=== PATIENT | male | born 1955 | race African-American/Black ===

== ENCOUNTER 2018-04-13 13:37 | Outpatient (CLI) | payer MEDICARE, MEDICAID ==
[2018-04-13 14:09] LABS: BASOPHILS % (AUTO) 1.3 % (0.0-2.0); EOSINOPHILS % (AUTO) 2.2 % (0.0-3.0); HEMATOCRIT 27.8 % (42.0-52.0); HEMOGLOBIN 8.5 G/DL (14.2-18.0); LYMPHOCYTES % (AUTO) 13.2 % (20.0-45.0); MEAN CORPUSCULAR VOLUME 91 FL (80-99); MONOCYTES % (AUTO) 7.3 % (1.0-10.0); PLATELET COUNT 228 K/UL (150-450); RED BLOOD COUNT 3.05 M/UL (4.70-6.10); RED CELL DISTRIBUTION WIDTH 13.7 % (11.6-14.8); WHITE BLOOD COUNT 8.3 K/UL (4.8-10.8)
[2018-04-13 14:34] LABS: ALANINE AMINOTRANSFERASE 18 U/L (12-78); ALBUMIN 3.1 G/DL (3.4-5.0); ALBUMIN/GLOBULIN RATIO 0.6 (1.0-2.7); ALKALINE PHOSPHATASE 108 U/L (46-116); ANION GAP 14 mmol/L (5-15); ASPARTATE AMINO TRANSFERASE 18 U/L (15-37); BILIRUBIN,TOTAL 0.2 MG/DL (0.2-1.0); BLOOD UREA NITROGEN 45 mg/dL (7-18); CALCIUM 6.9 MG/DL (8.5-10.1); CARBON DIOXIDE 20 MMOL/L (21-32); CHLORIDE 107 MMOL/L (98-107); CREATININE 5.6 MG/DL (0.55-1.30); POTASSIUM 4.8 MMOL/L (3.5-5.1); SODIUM 140 MMOL/L (136-145)
--- NOTE | 2018-04-15 17:02 | Cardiology Report ---
APPROVED REPORT EKG Measurement Heart [id number] Normal sinus rhythm Prolonged QT Abnormal ECG
== END 2018-04-13 15:37 | disposition home or self-care (01) ==
LOC: CAR 13:37
DX: R53.1 Weakness (principal)
CPT/HCPCS: 36415; 80053; 82306; 82607; 84153; 84443; 85025; 85651; 93005

== ENCOUNTER 2018-05-12 16:59 | Inpatient (IN) | payer MEDICARE, MEDICAID ==
[~2018-05-12] VITALS: Ht 188 cm; Wt 157.9 kg
[2018-05-12 17:28] VITALS: BP 137/93
[2018-05-12 17:41] LABS: EOSINOPHILS % (AUTO) 1.6 % (0.0-3.0); HEMATOCRIT 31.2 % (42.0-52.0); HEMOGLOBIN 9.7 G/DL (14.2-18.0); MEAN CORPUSCULAR VOLUME 91 FL (80-99); MONOCYTES % (AUTO) 7.1 % (1.0-10.0); NEUTROPHILS % (AUTO) 75.3 % (45.0-75.0); PLATELET COUNT 240 K/UL (150-450); RED BLOOD COUNT 3.41 M/UL (4.70-6.10); RED CELL DISTRIBUTION WIDTH 13.4 % (11.6-14.8); WHITE BLOOD COUNT 10.6 K/UL (4.8-10.8)
[2018-05-12 17:46] LABS: APPEARANCE,URINE CLEAR; BILIRUBIN, URINE NEGATIVE (NEGATIVE); COLOR,URINE PALE YELLOW; GLUCOSE, URINE (UA) NEGATIVE (NEGATIVE); KETONES,URINE NEGATIVE (NEGATIVE); LEUKOCYTE ESTERASE ,URINE 3+ (NEGATIVE); NITRITE,URINE NEGATIVE (NEGATIVE); PH,URINE 5 (4.5-8.0); PROTEIN,URINE 2+ (NEGATIVE); UROBILINOGEN,URINE NORMAL MG/DL (0.0-1.0)
[2018-05-12 17:52] LABS: ANION GAP 13 mmol/L (5-15); BLOOD UREA NITROGEN 46 mg/dL (7-18); CALCIUM 7.5 MG/DL (8.5-10.1); CARBON DIOXIDE 23 MMOL/L (21-32); CHLORIDE 105 MMOL/L (98-107); CREATININE 5.1 MG/DL (0.55-1.30); POTASSIUM 4.7 MMOL/L (3.5-5.1); SODIUM 141 MMOL/L (136-145)
[2018-05-12 18:03] LABS: ALANINE AMINOTRANSFERASE 15 U/L (12-78); ALBUMIN 3.6 G/DL (3.4-5.0); ALBUMIN/GLOBULIN RATIO 0.7 (1.0-2.7); ALKALINE PHOSPHATASE 127 U/L (46-116); ASPARTATE AMINO TRANSFERASE 17 U/L (15-37); BILIRUBIN,TOTAL 0.3 MG/DL (0.2-1.0); CREATINE KINASE 799 U/L (26-308)
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
[2018-05-12] MEDS ORDERED: cefTRIAXone 1 GM in NS 55 ML IVPB ONE (18:45)
[2018-05-12 18:47] VITALS: BP 139/82
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
[2018-05-12 19:41] VITALS: BP 141/71
[2018-05-12] MEDS ORDERED: AMLODIPINE BESY10 MG ORAL (20:39)
[2018-05-12] MEDS ORDERED: LEXAPRO10 MG ORAL (20:49)
[2018-05-12] MEDS ORDERED: TRAZODONE HCL150 MG ORAL (20:49)
[2018-05-12] MEDS ORDERED: SEROQUEL100 MG ORAL (20:49)
[2018-05-12 21:06] VITALS: BP 140/67
[2018-05-12 22:19] VITALS: BP 138/67
[2018-05-12] MEDS: Heparin 5000 units/ml inj SUBQ SCH (23:30)
[2018-05-13] VITALS: BP 147/89
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
[2018-05-13 04:00] VITALS: BP 151/78
[2018-05-13 07:24] LABS: BASOPHILS % (AUTO) 0.7 % (0.0-2.0); EOSINOPHILS % (AUTO) 1.6 % (0.0-3.0); HEMATOCRIT 29.6 % (42.0-52.0); HEMOGLOBIN 8.9 G/DL (14.2-18.0); LYMPHOCYTES % (AUTO) 10.4 % (20.0-45.0); MEAN CORPUSCULAR VOLUME 91 FL (80-99); NEUTROPHILS % (AUTO) 80.3 % (45.0-75.0); PLATELET COUNT 225 K/UL (150-450); RED BLOOD COUNT 3.25 M/UL (4.70-6.10); RED CELL DISTRIBUTION WIDTH 13.3 % (11.6-14.8); WHITE BLOOD COUNT 9.4 K/UL (4.8-10.8)
[2018-05-13 07:38] LABS: CHLORIDE 112 MMOL/L (98-107)
[2018-05-13 07:52] LABS: ANION GAP 12 mmol/L (5-15); BLOOD UREA NITROGEN 44 mg/dL (7-18); CALCIUM 7.5 MG/DL (8.5-10.1); CARBON DIOXIDE 22 MMOL/L (21-32); CREATININE 5.3 MG/DL (0.55-1.30); POTASSIUM 4.9 MMOL/L (3.5-5.1); SODIUM 146 MMOL/L (136-145)
[2018-05-13 07:57] LABS: ALANINE AMINOTRANSFERASE 15 U/L (12-78); ALBUMIN 3.1 G/DL (3.4-5.0); ALBUMIN/GLOBULIN RATIO 0.7 (1.0-2.7); ALKALINE PHOSPHATASE 115 U/L (46-116); ASPARTATE AMINO TRANSFERASE 16 U/L (15-37); BILIRUBIN,TOTAL 0.3 MG/DL (0.2-1.0); CHOLESTEROL 153 MG/DL (< 200); CREATINE KINASE 759 U/L (26-308); HDL CHOLESTEROL 44 MG/DL (40-60); TRIGLYCERIDES 81 MG/DL (30-150)
[2018-05-13 08:53] VITALS: BP 148/96
[2018-05-13] MEDS: cefTRIAXone 1 GM in NS 55 ML IVPB SCH (09:54)
--- NOTE | 2018-05-13 09:59 | Diagnostic Imaging Report ---
Indication: Dyspnea Technique: One view of the chest Comparison: 09/24/2011 Findings: There is persistent elevation of right hemidiaphragm with some right basilar atelectasis. The lungs and pleural spaces are otherwise clear. The heart size is upper limits of normal. Extensive degenerative proliferative changes of the right shoulder are again demonstrated Impression: No acute process. Findings as noted
[2018-05-13] MEDS ORDERED: Norco 5mg/325mg tab ORAL PRN (10:00)
[2018-05-13] MEDS: Docusate 100mg cap ORAL SCH (10:03)
[2018-05-13] MEDS: Heparin 5000 units/ml inj SUBQ SCH ×2 (10:07→20:47)
[2018-05-13 12:00] VITALS: BP 152/96
--- NOTE | 2018-05-13 12:45 | Diagnostic Imaging Report ---
Indication: Acute renal failure Technique: Grayscale and duplex images of the kidneys, retroperitoneum, and bladder were obtained. Comparison: none Findings: Exam is somewhat limited due to patient body habitus Right kidney measures 10 cm in length. Left kidney measures 11.2 cm in length. It is not well-demonstrated, due to overlying bowel gas. Both kidneys demonstrate normal echogenicity. No hydronephrosis. Right kidney demonstrates multiple cysts. Left kidney demonstrates an interpolar region cyst. Inferior vena cava could not be demonstrated. Bladder is distended, calculated volume 671 mL. Impression: Somewhat limited exam, as described Negative for hydronephrosis Bilateral renal cysts Markedly distended bladder, 671 mL Nonvisualized inferior vena cava.
--- NOTE | 2018-05-13 14:16 | Consultation ---
Consult Note Assessment/Plan Renal consult dictated # [id number] Flex Traylor MD May 13, 2018 14:16
[2018-05-13 16:00] VITALS: BP 154/101
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
[2018-05-13 20:34] VITALS: BP 167/88
[2018-05-13] MEDS: QUEtiapine 200mg tab ORAL SCH (20:46)
[2018-05-13] MEDS: TraZODone 100mg tab ORAL SCH (20:46)
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
[2018-05-14 00:24] VITALS: BP 136/89
[2018-05-14 04:58] VITALS: BP 138/79
[2018-05-14 07:49] LABS: ANION GAP 12 mmol/L (5-15); BLOOD UREA NITROGEN 46 mg/dL (7-18); CALCIUM 7.4 MG/DL (8.5-10.1); CARBON DIOXIDE 23 MMOL/L (21-32); CHLORIDE 114 MMOL/L (98-107); CREATININE 5.3 MG/DL (0.55-1.30); PHOSPHORUS 5.4 MG/DL (2.5-4.9); POTASSIUM 4.5 MMOL/L (3.5-5.1); SODIUM 149 MMOL/L (136-145)
[2018-05-14 07:57] VITALS: BP 151/95
[2018-05-14 08:04] LABS: % IRON SATURATION 15 % (15-50); IRON 24 ug/dL (50-175); TOTAL IRON BINDING CAPACITY 161 ug/dL (250-450)
[2018-05-14] MEDS: cefTRIAXone 1 GM in NS 55 ML IVPB SCH (08:35)
[2018-05-14] MEDS: Docusate 100mg cap ORAL SCH (08:35)
[2018-05-14] MEDS: Heparin 5000 units/ml inj SUBQ SCH ×2 (08:47→20:28)
--- NOTE | 2018-05-14 10:28 | Consultation ---
History of Present Illness General Date patient seen: May 14, 2018 Time patient seen: 10:15 Chief Complaint: General Complaint Referring physician: Carlos Barbosa MD Present Illness HPI Asked to evaluate this 62 yom for coccyx and right plantar foot ulcers. He was admitted to [facility] from home 2 days ago with renal failure and UTI. He lives at home alone and spends most of his time in an electric wheelchair. He states he has had the coccyx ulcer for several months and the right plantar foot ulcer for a year. He was going to [facility] for the foot ulcer but unclear whether there has been any management of the coccyx ulcer. He is unsure if he has had any vascular work up of his LE. Allergies: Coded Allergies: No Known Allergies (Unverified , 05/12/18) Medication History Scheduled Amlodipine Besylate* (Amlodipine Besylate*), 10 MG ORAL DAILY, (Reported) Escitalopram Oxalate* (Lexapro*), Unknown Dose ORAL DAILY, (Reported) Quetiapine Fumarate* (Seroquel*), Unknown Dose ORAL QHS, (Reported) Trazodone* (Trazodone*), Unknown Dose ORAL BEDTIME, (Reported) Patient History History Provided By: Patient, Medical Record Healthcare decision maker PADILLA DRAKE Resuscitation status Full Code Advanced Directive on File N/A Past Medical/Surgical History Past Medical/Surgical History: (1) Acute renal failure (2) Ulcer of right heel (3) Schizoaffective disorder (4) Hypertension (5) Breast cancer in male Review of Systems Constitutional: Reports: no symptoms Eye: Reports: no symptoms Respiratory: Reports: no symptoms Gastrointestinal: Reports: no symptoms Skin: Reports: see HPI Physical Exam General Appearance: no apparent distress, alert, morbidly obese Lines, tubes and drains: peripheral Respiratory/Chest: no respiratory distress Cardiovascular/Chest: other - DP/PT not palpable in the right foot. Abdomen: soft Skin Exam: other - Coccyx ulcer is stage 4 with small pinpoint opening that probes down to bone. No erythema or warmth in the periskin and no undermining. No purulent drainage. Right plantar foot ulcer with very dry base and callus in the periulcer skin. No erythema or warmth. Musculoskeletal: other - Swelling in RLE but no swelling in right foot. Last 24 Hour Vital Signs Date Time Temp Pulse Resp B/P (MAP) Pulse Ox O2 Delivery O2 Flow Rate FiO2 05/14/18 09:00 Room Air 05/14/18 07:57 98.1 101 20 151/95 (113) 100 98.1 05/14/18 04:58 96.3 102 20 138/79 (98) 99 96.3 05/14/18 00:24 97.0 103 20 136/89 (105) 99 97.0 05/13/18 21:49 Room Air 05/13/18 20:46 100 167/88 05/13/18 20:34 99.3 100 20 167/88 (114) 97 99.3 05/13/18 16:00 98.4 100 20 154/101 (118) 98 98.4 05/13/18 12:00 98.1 99 20 152/96 (114) 96 98.1 Intake and Output 05/13/18 05/14/18 19:00 07:00 Intake Total 2625 ml 860 ml Output Total 4391 ml 1700 ml Balance -1766 ml -840 ml Intake Oral 2000 ml 360 ml IV Total 625 ml 500 ml Output Urine Total 4300 ml 1700 ml Post Void Residual 91 ml Bladder Scan Volume Amount 91cc 0 ml 121cc Laboratory Tests Test 05/14/18 05:50 Sodium Level 149 MMOL/L (136-145) H Potassium Level 4.5 MMOL/L (3.5-5.1) Chloride Level 114 MMOL/L (98-107) H Carbon Dioxide Level 23 MMOL/L (21-32) Anion Gap 12 mmol/L (5-15) Blood Urea Nitrogen 46 mg/dL (7-18) H Creatinine 5.3 MG/DL (0.55-1.30) H Estimat Glomerular Filtration Rate 13.3 mL/min (>60) Glucose Level 82 MG/DL (74-106) Calcium Level 7.4 MG/DL (8.5-10.1) L Phosphorus Level 5.4 MG/DL (2.5-4.9) H Iron Level 24 ug/dL (50-175) L Total Iron Binding Capacity 161 ug/dL (250-450) L Percent Iron Saturation 15 % (15-50) Unsaturated Iron Binding 137 ug/dL (112-346) Vitamin D 25-Hydroxy Pending 25-Hydroxy Vitamin D2 Pending 25-Hydroxy Vitamin D3 Pending Height (Feet): 6 Height (Inches): 2.00 Weight (Pounds): 348 Medications Current Medications Medications (Trade) Dose Ordered Sig/Dheeraj Route PRN Reason Start Time Stop Time Status Last Admin Dose Admin Acetaminophen (Tylenol) 650 mg Q4H PRN ORAL fever 05/12/18 19:45 06/11/18 19:44 Acetaminophen (Tylenol) 650 mg Q4H PRN ORAL Pain 1-6 05/13/18 10:00 06/12/18 09:59 Acetaminophen/ Hydrocodone Bitart ([place] 5/325) 1 tab Q4H PRN ORAL Severe Pain (Pain Scale 7-10) 05/13/18 10:00 05/20/18 09:59 Amlodipine Besylate (Norvasc) 10 mg DAILY@1999 ORAL 05/13/18 20:00 06/12/18 19:59 05/13/18 20:46 Ceftriaxone Sodium 1 gm/ Sodium Chloride 55 ml @ 110 mls/hr DAILY IVPB 05/13/18 09:00 05/20/18 08:59 05/14/18 08:35 Dextrose (Dextrose 50%) 25 ml STAT PRN IV Hypoglycemia 05/12/18 19:45 06/11/18 19:44 Dextrose (Dextrose 50%) 50 ml STAT PRN IV Hypoglycemia 05/12/18 19:45 06/11/18 19:44 Docusate Sodium (Colace) 100 mg DAILY ORAL 05/13/18 09:00 06/12/18 08:59 05/14/18 08:35 Escitalopram Oxalate (Lexapro) 20 mg DAILY ORAL 05/14/18 09:00 06/13/18 08:59 05/14/18 08:35 Heparin Sodium (Porcine) (Heparin 5000 units/ml) 5,000 units EVERY 12 HOURS SUBQ 05/12/18 21:19 06/11/18 21:18 05/14/18 08:47 Levothyroxine Sodium (Synthroid) 100 mcg DAILY@0630 ORAL 05/13/18 06:30 06/12/18 06:29 05/14/18 06:05 Quetiapine Fumarate (SEROquel) 800 mg BEDTIME ORAL 05/13/18 21:00 06/12/18 20:59 05/13/18 20:46 Sodium Chloride 1,000 ml @ 50 mls/hr Q20H IVLG 05/12/18 20:37 06/11/18 20:36 05/13/18 21:01 Trazodone HCl (Desyrel) 100 mg BEDTIME ORAL 05/13/18 21:00 06/12/18 20:59 05/13/18 20:46 Assessment/Plan Status: stable Assessment/Plan Patient with chronic stage 4 ulcer of the coccyx as well as right plantar foot ulcer. The foot ulcer is not in the typical location for pressure and would recommend arterial doppler evaluation of the RLE. The coccyx ulcer is small but due to the location and the patient's body habitus and the fact that he spends a significant amount of time sitting, this will be difficult to heal. The periulcer sin is moist in the gluteal cleft and so would use alginate to provide a less moisture filled wound environment. Ideally he would spend little time in the wheelchair to allow the ulcer to heal but this may be unrealistic given that he lives alone and can only ambulate for small distances due to deconditioning. No need for urgent surgical intervention at this time. When discharged can set him up for follow up at [facility]. Thank you for allowing me to participate in this patient's care. Lj Landers MD May 14, 2018 10:28
[2018-05-14 11:54] VITALS: BP 148/92
--- NOTE | 2018-05-14 13:48 | Nephrology Progress Note ---
Assessment/Plan Problem List: (1) UTI (urinary tract infection) Assessment: E coli sen to ceftriaxone (2) Chronic kidney disease (3) Hypothyroidism (4) Breast cancer in male Plan abxs check PTH and Vit D Discussed with Dr Barbosa Needs renal biopsy as outpt follow BMP Subjective Subjective feels ok Objective Objective Last 24 Hour Vital Signs Date Time Temp Pulse Resp B/P (MAP) Pulse Ox O2 Delivery O2 Flow Rate FiO2 05/14/18 11:54 98.2 96 20 148/92 (110) 98 98.2 05/14/18 09:00 Room Air 05/14/18 07:57 98.1 101 20 151/95 (113) 100 98.1 05/14/18 04:58 96.3 102 20 138/79 (98) 99 96.3 05/14/18 00:24 97.0 103 20 136/89 (105) 99 97.0 05/13/18 21:49 Room Air 05/13/18 20:46 100 167/88 05/13/18 20:34 99.3 100 20 167/88 (114) 97 99.3 05/13/18 16:00 98.4 100 20 154/101 (118) 98 98.4 Intake and Output 05/13/18 05/14/18 19:00 07:00 Intake Total 2625 ml 860 ml Output Total 4391 ml 1700 ml Balance -1766 ml -840 ml Intake Oral 2000 ml 360 ml IV Total 625 ml 500 ml Output Urine Total 4300 ml 1700 ml Post Void Residual 91 ml Bladder Scan Volume Amount 91cc 0 ml 121cc Laboratory Tests 05/14/18 05:50: Sodium Level 149H, Potassium Level 4.5, Chloride Level 114H, Carbon Dioxide Level 23, Anion Gap 12, Blood Urea Nitrogen 46H, Creatinine 5.3H, Estimat Glomerular Filtration Rate 13.3, Glucose Level 82, Calcium Level 7.4L, Phosphorus Level 5.4H, Iron Level 24L, Total Iron Binding Capacity 161L, Percent Iron Saturation 15, Unsaturated Iron Binding 137, Vitamin D 25-Hydroxy [ Pending], 25-Hydroxy Vitamin D2 [Pending], 25-Hydroxy Vitamin D3 [Pending] Height (Feet): 6 Height (Inches): 2.00 Weight (Pounds): 348 Cardiovascular: normal rate Respiratory/Chest: lungs clear Extremities: severe edema Flex Traylor MD May 14, 2018 13:48
[2018-05-14 16:00] VITALS: BP 152/99
[2018-05-14 20:00] VITALS: BP 155/97
[2018-05-14] MEDS: Iron Sucrose 100 MG in NS 55 ML IV SCH (20:26)
[2018-05-14] MEDS: QUEtiapine 200mg tab ORAL SCH (20:27)
[2018-05-14] MEDS: TraZODone 100mg tab ORAL SCH (20:27)
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
[2018-05-14] MEDS ORDERED: Cephalexin 500mg cap ORAL SCH (22:34)
[2018-05-14] MEDS: Cephalexin 250mg Cap ORAL SCH (23:13)
[2018-05-15 05:00] VITALS: BP 149/98
[2018-05-15] MEDS: Cephalexin 250mg Cap ORAL SCH ×3 (06:37→21:29)
[2018-05-15 07:27] LABS: BASOPHILS % (AUTO) 0.6 % (0.0-2.0); EOSINOPHILS % (AUTO) 2.3 % (0.0-3.0); HEMATOCRIT 27.1 % (42.0-52.0); HEMOGLOBIN 8.6 G/DL (14.2-18.0); LYMPHOCYTES % (AUTO) 14.7 % (20.0-45.0); MEAN CORPUSCULAR VOLUME 92 FL (80-99); MONOCYTES % (AUTO) 6.5 % (1.0-10.0); PLATELET COUNT 215 K/UL (150-450); RED BLOOD COUNT 2.94 M/UL (4.70-6.10); RED CELL DISTRIBUTION WIDTH 12.9 % (11.6-14.8); WHITE BLOOD COUNT 8.4 K/UL (4.8-10.8)
[2018-05-15 07:41] LABS: ANION GAP 14 mmol/L (5-15); BLOOD UREA NITROGEN 47 mg/dL (7-18); CARBON DIOXIDE 22 MMOL/L (21-32); CHLORIDE 113 MMOL/L (98-107); CREATININE 5.4 MG/DL (0.55-1.30); POTASSIUM 4.3 MMOL/L (3.5-5.1); SODIUM 149 MMOL/L (136-145)
[2018-05-15 08:00] VITALS: BP 137/82
[2018-05-15] MEDS: Docusate 100mg cap ORAL SCH (08:24)
[2018-05-15] MEDS: Heparin 5000 units/ml inj SUBQ SCH ×2 (08:25→21:34)
[2018-05-15 08:32] LABS: CREATINE KINASE 760 U/L (26-308)
--- NOTE | 2018-05-15 11:02 | Nephrology Progress Note ---
Assessment/Plan Problem List: (1) UTI (urinary tract infection) Assessment: E coli sen to ceftriaxone (2) Chronic kidney disease (3) Hypothyroidism (4) Breast cancer in male Plan abxs check PTH and Vit D Needs renal biopsy as outpt Subjective Subjective feels ok Objective Objective Last 24 Hour Vital Signs Date Time Temp Pulse Resp B/P (MAP) Pulse Ox O2 Delivery O2 Flow Rate FiO2 05/15/18 09:00 Room Air 05/15/18 08:00 97.3 102 19 137/82 (100) 97 97.3 05/15/18 05:00 97.9 101 20 149/98 (115) 94 97.9 05/14/18 21:25 Room Air 05/14/18 20:27 101 155/97 05/14/18 20:00 98.4 101 20 155/97 (116) 93 98.4 05/14/18 16:00 98.2 96 20 152/99 (116) 98 98.2 05/14/18 11:54 98.2 96 20 148/92 (110) 98 98.2 Intake and Output 05/14/18 05/15/18 19:00 07:00 Intake Total 1085 ml 110 ml Output Total 1800 ml 2600 ml Balance -715 ml -2490 ml Intake Oral 480 ml IV Total 605 ml 110 ml Output Urine Total 1800 ml 2600 ml Bladder Scan Volume Amount 0 ml 0 ml 0 ml 0 ml # Bowel Movements 1 Laboratory Tests 05/15/18 04:50: White Blood Count 8.4, Red Blood Count 2.94L, Hemoglobin 8.6L, Hematocrit 27.1L , Mean Corpuscular Volume 92, Mean Corpuscular Hemoglobin 29.4, Mean Corpuscular Hemoglobin Concent 31.8L, Red Cell Distribution Width 12.9, Platelet Count 215, Mean Platelet Volume 6.7, Neutrophils (%) (Auto) 76.0H, Lymphocytes (%) (Auto) 14.7L, Monocytes (%) (Auto) 6.5, Eosinophils (%) (Auto) 2.3, Basophils (%) (Auto) 0.6, Sodium Level 149H, Potassium Level 4.3, Chloride Level 113H, Carbon Dioxide Level 22, Anion Gap 14, Blood Urea Nitrogen 47H, Creatinine 5.4H, Estimat Glomerular Filtration Rate 13.1, Glucose Level 86, Calcium Level 8.0L, Total Creatine Kinase 760H Height (Feet): 6 Height (Inches): 2.00 Weight (Pounds): 348 Cardiovascular: normal rate Respiratory/Chest: lungs clear Extremities: moderate edema Flex Traylor MD May 15, 2018 11:02
[2018-05-15 12:00] VITALS: BP 156/89
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
[2018-05-15 16:00] VITALS: BP 153/81
[2018-05-15 21:00] VITALS: BP 174/106
[2018-05-15] MEDS: Iron Sucrose 100 MG in NS 55 ML IV SCH (21:28)
[2018-05-15] MEDS: TraZODone 100mg tab ORAL SCH (21:29)
[2018-05-15] MEDS: QUEtiapine 200mg tab ORAL SCH (21:31)
[2018-05-15 21:40] VITALS: BP 155/96
[2018-05-16 04:00] VITALS: BP 152/97
[2018-05-16] MEDS: Cephalexin 250mg Cap ORAL SCH ×2 (06:01→15:11)
[2018-05-16 07:28] LABS: ANION GAP 15 mmol/L (5-15); BLOOD UREA NITROGEN 47 mg/dL (7-18); CALCIUM 7.7 MG/DL (8.5-10.1); CARBON DIOXIDE 21 MMOL/L (21-32); CHLORIDE 111 MMOL/L (98-107); CREATININE 5.1 MG/DL (0.55-1.30); POTASSIUM 4.2 MMOL/L (3.5-5.1); SODIUM 147 MMOL/L (136-145)
[2018-05-16 08:00] VITALS: BP 155/95
[2018-05-16] MEDS: Docusate 100mg cap ORAL SCH (08:46)
[2018-05-16] MEDS: Heparin 5000 units/ml inj SUBQ SCH (08:50)
[2018-05-16 12:00] VITALS: BP 149/93
--- NOTE | 2018-05-16 12:37 | Nephrology Progress Note ---
Assessment/Plan Problem List: (1) UTI (urinary tract infection) Assessment: E coli sen to ceftriaxone (2) Chronic kidney disease Assessment: stable (3) Hypothyroidism (4) Breast cancer in male (5) Secondary hyperparathyroidism (of renal origin) Plan abxs start Zemplar Needs renal biopsy as outpt Subjective Subjective feels ok Objective Objective Last 24 Hour Vital Signs Date Time Temp Pulse Resp B/P (MAP) Pulse Ox O2 Delivery O2 Flow Rate FiO2 05/16/18 12:00 97.2 98 20 149/93 (111) 97 97.2 05/16/18 09:00 Room Air 05/16/18 08:00 97.1 104 20 155/95 (115) 100 97.1 05/16/18 04:00 98.1 98 20 152/97 (115) 98 98.1 05/15/18 21:40 155/96 (115) 05/15/18 21:29 98 155/96 05/15/18 21:00 Room Air 05/15/18 21:00 98.2 97 19 174/106 (128) 97 98.2 05/15/18 16:00 97.8 98 20 153/81 (105) 95 97.8 Intake and Output 05/15/18 05/16/18 19:00 07:00 Intake Total 500 ml 1060 ml Output Total 2000 ml 2400 ml Balance -1500 ml -1340 ml Intake Oral 500 ml 1000 ml IV Total 60 ml Output Urine Total 2000 ml 2400 ml Post Void Residual 0 ml Bladder Scan Volume Amount 0 ml <10 ml # Voids 4 Laboratory Tests 05/16/18 05:10: Erythrocyte Sedimentation Rate 112H, Sodium Level 147H, Potassium Level 4.2, Chloride Level 111H, Carbon Dioxide Level 21, Anion Gap 15, Blood Urea Nitrogen 47H, Creatinine 5.1H, Estimat Glomerular Filtration Rate 14.1, Glucose Level 88 , Calcium Level 7.7L, C-Reactive Protein, Quantitative 10.4H, Aldolase [Pending] , Anti-Nuclear Antibody Screen [Pending], Rapid Plasma Reagin [Pending] Height (Feet): 6 Height (Inches): 2.00 Weight (Pounds): 348 Cardiovascular: normal rate Respiratory/Chest: lungs clear Extremities: severe edema Flex Traylor MD May 16, 2018 12:37
[2018-05-16] MEDS ORDERED: Paricalcitol 1mcg cap ORAL SCH (14:00)
[2018-05-16] MEDS ORDERED: DOK100 M1 ORAL (17:13)
[2018-05-16] MEDS ORDERED: CEPHALEXIN250 MG ORAL (17:13)
[2018-05-16] MEDS ORDERED: HEPARIN SO5000 UNIT2 SUBQ (17:13)
[2018-05-16] MEDS ORDERED: SEROQUEL200 MG ORAL (17:13)
[2018-05-16] MEDS ORDERED: NORVASC10 MG ORAL (17:13)
[2018-05-16] MEDS ORDERED: ACETAMINOPHEN325 M1 ORAL (17:13)
[2018-05-16] MEDS ORDERED: VENOFER100 MG/5 M IV (17:13)
[2018-05-16] MEDS ORDERED: LEXAPRO10 MG ORAL (17:13)
[2018-05-16] MEDS ORDERED: SYNTHROID100 MCG ORAL (17:13)
[2018-05-16] MEDS ORDERED: ZEMPLAR1 MC1 ORAL (17:13)
[2018-05-16] MEDS ORDERED: NORCO 5-325 TA1 EACH ORAL (17:13)
[2018-05-16] MEDS ORDERED: DESYREL100 MG ORAL (17:13)
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
[2018-05-17] MEDS ORDERED: Paricalcitol 1mcg cap ORAL SCH (09:00)
--- NOTE | 2018-05-20 00:53 | Cardiology Report ---
APPROVED REPORT EKG Measurement Heart [id number] Normal sinus rhythm Septal infarct, age undetermined Abnormal ECG
== END 2018-05-16 19:25 | DRG 690 ==
LOC: EMR 18:08 → 4W 18:10 → EDBEDREQ 20:48
DX: N39.0 Urinary tract infection, site not specified (principal); I12.0 Hypertensive chronic kidney disease with stage 5 chronic kidney disease or end stage renal disease; N18.5 Chronic kidney disease, stage 5; N25.81 Secondary hyperparathyroidism of renal origin; L97.419 Non-pressure chronic ulcer of right heel and midfoot with unspecified severity; G81.91 Hemiplegia, unspecified affecting right dominant side; Z68.41 Body mass index [BMI] 40.0-44.9, adult; L98.426 Non-pressure chronic ulcer of back with bone involvement without evidence of necrosis; B96.20 Unspecified Escherichia coli [E. coli] as the cause of diseases classified elsewhere; E61.1 Iron deficiency; E03.9 Hypothyroidism, unspecified; E66.01 Morbid (severe) obesity due to excess calories; T14.90XS Injury, unspecified, sequela; V89.2XXS Person injured in unspecified motor-vehicle accident, traffic, sequela; R26.81 Unsteadiness on feet; T14.8XXS Other injury of unspecified body region, sequela; F25.9 Schizoaffective disorder, unspecified; Z85.3 Personal history of malignant neoplasm of breast; Z90.12 Acquired absence of left breast and nipple; Z87.820 Personal history of traumatic brain injury; M79.651 Pain in right thigh
CPT/HCPCS: 36415; 71045; 76770; 80048; 80053; 80061; 81003; 82085; 82306; 82550; 83036; 83540; 83550; 83735; 83880; 83970; 84100; 84165; 84443; 84484; 85025; 85610; 85651; 85730; 86039; 86140; 86592; 87086; 87181; 93005; 93970

== ENCOUNTER 2018-07-04 14:11 | Outpatient (RCR) | payer MEDICARE, MEDICAID ==
[~2018-07-04] VITALS: Ht 182.9 cm; Wt 136.1 kg
[~2018-07-04 14:11] MED LIST: ACETAMINOPHEN325 M1 ORAL; AMLODIPINE BESY10 MG ORAL; CEPHALEXIN250 MG ORAL; DESYREL100 MG ORAL; DOK100 M1 ORAL; HEPARIN SO5000 UNIT2 SUBQ; LEXAPRO10 MG ORAL; NORCO 5-325 TA1 EACH ORAL; NORVASC10 MG ORAL; SEROQUEL100 MG ORAL; SEROQUEL200 MG ORAL; SYNTHROID100 MCG ORAL; TRAZODONE HCL150 MG ORAL; VENOFER100 MG/5 M IV; ZEMPLAR1 MC1 ORAL
== END 2018-07-27 | disposition home or self-care (01) ==
LOC: WCC 14:11
DX: L89.154 Pressure ulcer of sacral region, stage 4 (principal); L97.513 Non-pressure chronic ulcer of other part of right foot with necrosis of muscle; T24.211A Burn of second degree of right thigh, initial encounter; T24.212A Burn of second degree of left thigh, initial encounter; L98.492 Non-pressure chronic ulcer of skin of other sites with fat layer exposed; Z90.12 Acquired absence of left breast and nipple; I12.9 Hypertensive chronic kidney disease with stage 1 through stage 4 chronic kidney disease, or unspecified chronic kidney disease; N18.9 Chronic kidney disease, unspecified
CPT/HCPCS: 11042; 11043; 11045

== ENCOUNTER 2018-07-25 10:58 | Outpatient (CLI) | payer MEDICARE, MEDICAID ==
--- NOTE | 2018-07-25 12:16 | Diagnostic Imaging Report ---
APPROVED REPORT CPT Code: 43270 Symptoms Comments: Chronic non healing ulcer Comments Edema Technically difficult study due to vessel depth (mid-thigh and calf area). RIGHT LEG: Common femoral artery waveform analysis is within normal limits at rest. Color flow duplex sonography reveals calcification throughout the superficial femoral and popliteal arteries. There is no evidence of significant stenosis or occlusion within these segments. The tibioperoneal trunk was not well visualized. The distal posterior, anterior and dorsalis pedis arteries are also mildly calcified. The Doppler tibial artery waveform analysis is compatible with mild ischemia at rest. LEFT LEG: Common femoral artery waveform analysis is within normal limits at rest. Color flow duplex sonography reveals calcification throughout the superficial femoral and popliteal arteries. There is no evidence of significant stenosis or occlusion within these segments. The tibioperoneal trunk was not well visualized. The distal posterior, anterior and dorsalis pedis arteries are also mildly calcified. The Doppler tibial artery waveform analysis is compatible with mild ischemia at rest.
== END 2018-07-25 12:58 | disposition home or self-care (01) ==
LOC: VAS 10:58
DX: T81.89XA Other complications of procedures, not elsewhere classified, initial encounter (principal)
CPT/HCPCS: 93925

== ENCOUNTER 2018-08-08 08:58 | Outpatient (RCR) | payer MEDICARE, MEDICAID | END 2018-08-26 | disposition home or self-care (01) | LOC: WCC 08:58 | DX: L89.154 Pressure ulcer of sacral region, stage 4 (principal); L97.513 Non-pressure chronic ulcer of other part of right foot with necrosis of muscle; T24.211A Burn of second degree of right thigh, initial encounter; T24.212A Burn of second degree of left thigh, initial encounter; L98.492 Non-pressure chronic ulcer of skin of other sites with fat layer exposed; L97.514 Non-pressure chronic ulcer of other part of right foot with necrosis of bone; I12.9 Hypertensive chronic kidney disease with stage 1 through stage 4 chronic kidney disease, or unspecified chronic kidney disease; N18.9 Chronic kidney disease, unspecified; Z90.12 Acquired absence of left breast and nipple | CPT/HCPCS: 11043; 11044 ==

== ENCOUNTER → 2018-08-15 | Day surgery (SDC) | payer MEDICARE, MEDICAID ==
[2018-08-15 11:36] LABS: BASOPHILS % (AUTO) 0.8 % (0.0-2.0); EOSINOPHILS % (AUTO) 1.2 % (0.0-3.0); HEMATOCRIT 32.1 % (42.0-52.0); HEMOGLOBIN 9.8 G/DL (14.2-18.0); LYMPHOCYTES % (AUTO) 12.4 % (20.0-45.0); MEAN CORPUSCULAR VOLUME 90 FL (80-99); MONOCYTES % (AUTO) 5.7 % (1.0-10.0); NEUTROPHILS % (AUTO) 79.9 % (45.0-75.0); PLATELET COUNT 228 K/UL (150-450); RED BLOOD COUNT 3.57 M/UL (4.70-6.10); RED CELL DISTRIBUTION WIDTH 13.1 % (11.6-14.8); WHITE BLOOD COUNT 8.1 K/UL (4.8-10.8)
[2018-08-15 12:12] LABS: ANION GAP 15 mmol/L (5-15); BLOOD UREA NITROGEN 63 mg/dL (7-18); CALCIUM 7.6 MG/DL (8.5-10.1); CARBON DIOXIDE 21 MMOL/L (21-32); CHLORIDE 108 MMOL/L (98-107); CREATININE 5.5 MG/DL (0.55-1.30); POTASSIUM 4.3 MMOL/L (3.5-5.1); SODIUM 144 MMOL/L (136-145)
--- NOTE | 2018-08-15 17:23 | Diagnostic Imaging Report ---
Indication: Cough Technique: One view of the chest Comparison: A 2017 Findings: Persistent elevation of the right hemidiaphragm. Right basilar atelectasis persists. The heart is enlarged. Lungs and pleural spaces are otherwise clear. Surgical clips are seen in the left axilla. Extensive chronic appearing deformity of the right clavicle, scapula, and shoulder and right lateral ribs are again demonstrated. Impression: No acute process. Findings as noted
--- NOTE | 2018-08-16 08:44 | Cardiology Report ---
APPROVED REPORT EKG Measurement Heart [id number] Normal sinus rhythm Low voltage QRS Borderline ECG
== END | disposition home or self-care (01) ==
LOC: CANPRESDC → LAB 08:00
DX: Z01.818 Encounter for other preprocedural examination (principal); J44.9 Chronic obstructive pulmonary disease, unspecified; I12.0 Hypertensive chronic kidney disease with stage 5 chronic kidney disease or end stage renal disease; N18.5 Chronic kidney disease, stage 5
CPT/HCPCS: 36415; 71045; 80048; 83735; 85025; 85610; 85730; 93005

== ENCOUNTER 2018-08-29 09:44 | Outpatient (RCR) | payer MEDICARE, MEDICAID ==
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
[~2018-08-29] VITALS: Ht 188 cm; Wt 148.3 kg
[2018-09-01] MEDS ORDERED: Lidocaine HCl 2% Jelly 6ml Tube TOPIC SCH (11:15)
== END 2018-09-26 | disposition home or self-care (01) ==
LOC: WCC 09:44
DX: L89.154 Pressure ulcer of sacral region, stage 4 (principal); L97.513 Non-pressure chronic ulcer of other part of right foot with necrosis of muscle; T24.211A Burn of second degree of right thigh, initial encounter; T24.212A Burn of second degree of left thigh, initial encounter; L98.492 Non-pressure chronic ulcer of skin of other sites with fat layer exposed; L97.514 Non-pressure chronic ulcer of other part of right foot with necrosis of bone; I12.9 Hypertensive chronic kidney disease with stage 1 through stage 4 chronic kidney disease, or unspecified chronic kidney disease; N18.9 Chronic kidney disease, unspecified; Z90.12 Acquired absence of left breast and nipple
CPT/HCPCS: 11044

== ENCOUNTER 2019-04-06 13:21 | Outpatient (CLI) | payer MEDICARE, MEDICAID ==
--- NOTE | 2019-04-07 15:56 | Cardiology Report ---
APPROVED REPORT EKG Measurement Heart [id number] [id number] Normal sinus rhythm Septal infarct, age undetermined T wave abnormality, consider inferior ischemia Abnormal ECG
== END 2019-04-06 15:21 | disposition home or self-care (01) ==
LOC: CAR 13:21
DX: Q89.8 Other specified congenital malformations (principal)
CPT/HCPCS: 93005

== ENCOUNTER 2019-04-10 10:12 | Outpatient (RCR) | payer MEDICARE, MEDICAID | END 2019-04-26 | disposition home or self-care (01) | LOC: WCC 10:12 | DX: L89.154 Pressure ulcer of sacral region, stage 4 (principal); L89.894 Pressure ulcer of other site, stage 4; Z85.3 Personal history of malignant neoplasm of breast; Z79.899 Other long term (current) drug therapy; I12.9 Hypertensive chronic kidney disease with stage 1 through stage 4 chronic kidney disease, or unspecified chronic kidney disease; N18.9 Chronic kidney disease, unspecified; E66.01 Morbid (severe) obesity due to excess calories; E03.9 Hypothyroidism, unspecified; Z90.12 Acquired absence of left breast and nipple; F17.200 Nicotine dependence, unspecified, uncomplicated | CPT/HCPCS: 11044 ==

== ENCOUNTER 2019-05-08 09:49 | Outpatient (RCR) | payer MEDICARE, MEDICAID | END 2019-05-27 | disposition home or self-care (01) | LOC: WCC 09:49 | DX: L89.154 Pressure ulcer of sacral region, stage 4 (principal); L89.894 Pressure ulcer of other site, stage 4; Z90.12 Acquired absence of left breast and nipple; F17.200 Nicotine dependence, unspecified, uncomplicated; I12.0 Hypertensive chronic kidney disease with stage 5 chronic kidney disease or end stage renal disease; N18.6 End stage renal disease; Z99.2 Dependence on renal dialysis; Z85.3 Personal history of malignant neoplasm of breast; E03.9 Hypothyroidism, unspecified; Z79.899 Other long term (current) drug therapy | CPT/HCPCS: 11043; 11044; 87070; 87181; 87205 ==

== ENCOUNTER 2019-06-05 10:25 | Outpatient (RCR) | payer MEDICARE, MEDICAID | END 2019-06-26 | disposition home or self-care (01) | LOC: WCC 10:25 | DX: L89.154 Pressure ulcer of sacral region, stage 4 (principal); L02.31 Cutaneous abscess of buttock; L89.893 Pressure ulcer of other site, stage 3; I12.9 Hypertensive chronic kidney disease with stage 1 through stage 4 chronic kidney disease, or unspecified chronic kidney disease; N18.9 Chronic kidney disease, unspecified; Z85.3 Personal history of malignant neoplasm of breast; F25.9 Schizoaffective disorder, unspecified; E66.01 Morbid (severe) obesity due to excess calories; E03.9 Hypothyroidism, unspecified; Z90.12 Acquired absence of left breast and nipple; Z79.899 Other long term (current) drug therapy | CPT/HCPCS: 10060; 11043; 11044; 87070; 87181; 87205 ==

== ENCOUNTER 2019-08-17 12:53 | Emergency (ER) | payer MEDICARE, MEDICAID ==
[~2019-08-17] VITALS: Ht 190.5 cm; Wt 136.1 kg
[2019-08-17 13:25] VITALS: BP 188/92
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
[2019-08-17 14:59] LABS: HEMATOCRIT 36.1 % (42.0-52.0); LYMPHOCYTES % (AUTO) 11.7 % (20.0-45.0); MEAN CORPUSCULAR VOLUME 91 FL (80-99); NEUTROPHILS % (AUTO) 79.3 % (45.0-75.0); PLATELET COUNT 176 K/UL (150-450); RED BLOOD COUNT 3.98 M/UL (4.70-6.10); RED CELL DISTRIBUTION WIDTH 15.9 % (11.6-14.8); WHITE BLOOD COUNT 9.5 K/UL (4.8-10.8)
[2019-08-17 15:00] LABS: HEMOGLOBIN 11.4 G/DL (14.2-18.0)
[2019-08-17 15:08] LABS: ANION GAP 14 mmol/L (5-15); BLOOD UREA NITROGEN 57 mg/dL (7-18); CALCIUM 7.3 MG/DL (8.5-10.1); CARBON DIOXIDE 21 MMOL/L (21-32); CHLORIDE 108 MMOL/L (98-107); POTASSIUM 5.1 MMOL/L (3.5-5.1); SODIUM 143 MMOL/L (136-145)
[2019-08-17 15:13] LABS: ALANINE AMINOTRANSFERASE 19 U/L (12-78); ALBUMIN 3.7 G/DL (3.4-5.0); ALBUMIN/GLOBULIN RATIO 0.7 (1.0-2.7); ALKALINE PHOSPHATASE 123 U/L (46-116); ASPARTATE AMINO TRANSFERASE 21 U/L (15-37); BILIRUBIN,TOTAL 0.4 MG/DL (0.2-1.0); CREATINE KINASE 468 U/L (26-308)
[2019-08-17 15:25] VITALS: BP 171/86
--- NOTE | 2019-08-17 15:42 | Diagnostic Imaging Report ---
Indication: Right lower extremity pain and swelling. Technique: Duplex Doppler imaging performed from the right common femoral vein to the popliteal vein. FINDINGS: Normal compressibility demonstrated from the common femoral vein to the popliteal vein. Respiratory phasicity and good augmentation demonstrated on waveform analysis. There is no evidence of thrombosis. IMPRESSION: No evidence of deep venous thrombosis within the right lower extremity.
--- NOTE | 2019-08-17 15:46 | Diagnostic Imaging Report ---
Indication: Foot Pain Comparison: None Findings: 3 views of the right foot were obtained. There is severe deformity of the hindfoot and ankle with obliteration of the subtalar joint which appears fused, collapse of portions of the calcaneus and talus, superimpose degenerative arthropathy, and loss of the plantar arch. There is suggestion of posterior ulceration on the plantar part of the heel. There is generalized soft tissue swelling. Patient had prior fusion of the first MTP joint and distal osteotomy. The second MTP joint appears fused as well. The bones are diffusely osteopenic. IMPRESSION: Severe deformity of the foot as described above. No plain film evidence for acute osteomyelitis. Generalized soft tissue swelling, nonspecific in nature
[2019-08-17 16:02] LABS: APPEARANCE,URINE SLIGHTLY CLOUDY; BILIRUBIN, URINE NEGATIVE (NEGATIVE); COLOR,URINE PALE YELLOW; GLUCOSE, URINE (UA) NEGATIVE (NEGATIVE); KETONES,URINE NEGATIVE (NEGATIVE); LEUKOCYTE ESTERASE ,URINE 2+ (NEGATIVE); NITRITE,URINE NEGATIVE (NEGATIVE); PH,URINE 5 (4.5-8.0); PROTEIN,URINE 3+ (NEGATIVE); UROBILINOGEN,URINE NORMAL MG/DL (0.0-1.0)
[2019-08-17] MEDS ORDERED: CEPHALEXIN500 MG ORAL (17:08)
[2019-08-17 17:13] VITALS: BP 169/89
--- NOTE | 2019-08-20 21:21 | Emergency Room Report ---
Physical Exam Vital Signs Date Time Temp Pulse Resp B/P (MAP) Pulse Ox O2 Delivery O2 Flow Rate FiO2 08/17/19 13:23 98.1 95 20 188/92 (124) 98 Room Air Medical Decision Making PA Attestation All my diagnosis and treatment plans were reviewed ad discussed with my supervising physician Dr. Stephenson Diagnostic Impression: Primary Impression: Cellulitis Additional Impression: Wound of foot ER Course Urine culture and sensitivity confirmed the patient is resistant to the given medication and call patient with to notify him regarding findings as well as calling the new medication to pharmacy, left a voicemail for patient however patient did not call back. Last Vital Signs Date Time Temp Pulse Resp B/P (MAP) Pulse Ox O2 Delivery O2 Flow Rate FiO2 08/17/19 17:13 98.3 89 17 169/89 100 Room Air Disposition: HOME, SELF-CARE Condition: Stable Scripts Cephalexin* (KEFLEX*) 500 Mg Capsule 500 MG ORAL EVERY 6 HOURS for 10 Days, #40 CAP Prov: Booker Pagan M.D. 08/17/19 Referrals: Lj Landers MD Patient Instructions: Wound Care Additional Instructions: Please follow-up with at wound clinic in the next 2 to 3 days to create a wound care plan. Chapis Ashley Aug 20, 2019 21:21
== END 2019-08-17 17:15 | disposition home or self-care (01) ==
LOC: EMR 14:18
DX: L03.90 Cellulitis, unspecified (principal); L97.419 Non-pressure chronic ulcer of right heel and midfoot with unspecified severity; I10 Essential (primary) hypertension; Z99.3 Dependence on wheelchair
CPT/HCPCS: 36415; 80053; 81003; 82550; 83605; 83880; 84484; 85025; 87040; 87086; 87181; 93971; 99284

== ENCOUNTER 2019-08-28 09:50 | Outpatient (RCR) | payer MEDICARE, MEDICAID ==
[~2019-08-28 09:50] MED LIST changes: +CEPHALEXIN500 MG ORAL
== END 2019-09-26 | disposition home or self-care (01) ==
LOC: WCC 09:50
DX: L97.513 Non-pressure chronic ulcer of other part of right foot with necrosis of muscle (principal); L89.154 Pressure ulcer of sacral region, stage 4; Z72.0 Tobacco use; Z79.899 Other long term (current) drug therapy; Z90.12 Acquired absence of left breast and nipple; I12.9 Hypertensive chronic kidney disease with stage 1 through stage 4 chronic kidney disease, or unspecified chronic kidney disease; N18.9 Chronic kidney disease, unspecified; E03.9 Hypothyroidism, unspecified; F25.9 Schizoaffective disorder, unspecified
CPT/HCPCS: 11043

== ENCOUNTER 2019-09-12 09:43 | Outpatient (CLI) | payer MEDICARE, MEDICAID | END 2019-09-12 11:43 | disposition home or self-care (01) | LOC: VAS 09:43 | DX: R60.0 Localized edema (principal) | CPT/HCPCS: 93970 ==

== ENCOUNTER 2020-07-30 12:21 | Emergency (ER) | payer MEDICARE, MEDICAID ==
[~2020-07-30] VITALS: Ht 188 cm; Wt 127.9 kg
--- NOTE | 2020-07-30 12:46 | NUR ---
ED Nurse Note: Patient presents to ER due to open wound on the sole of the right foot. Patient states wound nurse changes dressing and it has beeen open for while. Report no fever, chills or N/V. Open wound, approximately 2cm x 3cm x1cm with slight pale yellow drainage on the dressing. Positive +2 dorsal pedis pulse noted. Patient awake, alert, oriented x 4. Regular, unlabored breathing noted.
--- NOTE | 2020-07-30 13:02 | NUR ---
ED Nurse Note:Wound pic on the right foot taken and uploaded in medical records.
--- NOTE | 2020-07-30 13:11 | NUR ---
ED Nurse Note: Patient c/o swelling in RLE with slight redness. Warmth on the RLE with some redness noted.
[2020-07-30] MEDS ORDERED: Clindamycin 600mg 50 ML IV ONE (13:30)
[2020-07-30 13:58] LABS: EOSINOPHILS % (AUTO) 2.9 % (0.0-3.0); HEMATOCRIT 44.1 % (42.0-52.0); HEMOGLOBIN 12.8 G/DL (14.2-18.0); LYMPHOCYTES % (AUTO) 14.1 % (20.0-45.0); MEAN CORPUSCULAR VOLUME 100 FL (80-99); MONOCYTES % (AUTO) 7.7 % (1.0-10.0); NEUTROPHILS % (AUTO) 74.4 % (45.0-75.0); PLATELET COUNT 233 K/UL (150-450); RED BLOOD COUNT 4.41 M/UL (4.70-6.10); RED CELL DISTRIBUTION WIDTH 16.7 % (11.6-14.8); WHITE BLOOD COUNT 8.2 K/UL (4.8-10.8)
[2020-07-30 14:09] LABS: CALCIUM 8.6 MG/DL (8.5-10.1); CREATININE 10.2 MG/DL (0.55-1.30)
[2020-07-30 14:14] LABS: ALBUMIN 3.3 G/DL (3.4-5.0); ALBUMIN/GLOBULIN RATIO 0.7 (1.0-2.7); BILIRUBIN,TOTAL 0.3 MG/DL (0.2-1.0)
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
--- NOTE | 2020-07-30 15:04 | NUR ---
ED Nurse Note: US by bed side
[2020-07-30] MEDS ORDERED: ACETAMINOPHEN-1 EAC1 ORAL (15:32)
[2020-07-30] MEDS ORDERED: MUPIROCIN22 GM TOPIC (15:32)
[2020-07-30] MEDS ORDERED: CLINDAMYCIN HC300 MG ORAL (15:32)
[2020-07-30 15:50] VITALS: BP 169/86
--- NOTE | 2020-07-30 15:50 | NUR ---
ED Nurse Note: Pt cleared by health care Provider for discharge. DC instructions/prescription was given and explained to pt and verbalized understanding of teachings. All medical deviecs such as ID band removed. Pt is AAO x4, ambulatory and left with all personal belongings.
--- NOTE | 2020-07-31 17:05 | Diagnostic Imaging Report ---
Indication: Right leg pain Technique: Grayscale and duplex images of the right lower extremity veins Comparison: 09/12/2019 Findings: On the right, grayscale and duplex images demonstrate no evidence of intraluminal thrombus. Normal phasic Doppler waveforms, demonstrating normal augmentation response and no evidence of valvular insufficiency. Greater saphenous vein(s) and tibial veins are patent. Normal compressibility. No significant change Impression: Negative for evidence of lower extremity deep venous thrombosis on the right
== END 2020-07-30 15:50 | disposition home or self-care (01) ==
LOC: EMR 13:10
DX: L03.115 Cellulitis of right lower limb (principal); R60.0 Localized edema; N18.6 End stage renal disease; Z99.2 Dependence on renal dialysis; I12.0 Hypertensive chronic kidney disease with stage 5 chronic kidney disease or end stage renal disease; Z85.3 Personal history of malignant neoplasm of breast; L97.419 Non-pressure chronic ulcer of right heel and midfoot with unspecified severity; E66.9 Obesity, unspecified; Z68.36 Body mass index [BMI] 36.0-36.9, adult
CPT/HCPCS: 36415; 80053; 83605; 85025; 87040; 93971; 96365; 99284; S0077